=== PATIENT | female | born 1940 | race Caucasian/White ===

== ENCOUNTER 2019-05-07 16:31 | Emergency (ER) | payer MEDICARE ==
[~2019-05-07] VITALS: Ht 154.9 cm; Wt 55.8 kg
--- NOTE | 2019-05-07 17:46 | Diagnostic Imaging Report ---
EXAMINATION: PA and lateral views of the chest. COMPARISON: None CLINICAL HISTORY: Heart issues DISCUSSION: Lines/tubes: None. Lungs: Age-related interstitial change. No consolidation. Pleura: No pleural effusion or pneumothorax. Heart and mediastinum: The cardiomediastinal silhouette is normal. Bones and soft tissues: No acute bony abnormalities. IMPRESSION: No acute cardiopulmonary abnormalities. Signed by: Dr. Tera Mendoza M.D. on 05/07/2019 5:43 PM
[2019-05-07 18:17] VITALS: BP 129/62
== END 2019-05-07 18:31 | disposition home or self-care (01) ==
LOC: FSED 16:31
DX: R00.2 Palpitations (principal); I48.11 Longstanding persistent atrial fibrillation; I10 Essential (primary) hypertension
CPT/HCPCS: 71046; 80053; 82553; 84484; 85025; 93005; 99283

== ENCOUNTER 2024-04-28 21:08 | Emergency (ER) | payer MEDICARE ==
[~2024-04-28] VITALS: Ht 154.9 cm; Wt 55.8 kg
[2024-04-28 21:15] VITALS: PULSE 64; RESP 17; TEMP 98.8
[2024-04-28 23:36] VITALS: BP 160/61; O2SAT 98
== END 2024-04-28 23:14 | disposition home or self-care (01) ==
LOC: ER 21:12
DX: S01.81XA Laceration without foreign body of other part of head, initial encounter (principal); M25.561 Pain in right knee; W01.0XXA Fall on same level from slipping, tripping and stumbling without subsequent striking against object, initial encounter; Y93.01 Activity, walking, marching and hiking; Y92.89 Other specified places as the place of occurrence of the external cause; I10 Essential (primary) hypertension; I48.91 Unspecified atrial fibrillation; M19.09 Primary osteoarthritis, other specified site
CPT/HCPCS: 70450; 99283

== ENCOUNTER 2025-02-08 23:48 | Emergency (ER) | payer MEDICARE ==
[~2025-02-08] VITALS: Ht 154.9 cm; Wt 55.8 kg
[2025-02-09 00:20] VITALS: RESP 17; TEMP 98
[2025-02-09 02:01] VITALS: PULSE 59
[2025-02-09 02:13] VITALS: BP 178/69; O2SAT 99
== END 2025-02-09 02:11 | disposition home or self-care (01) ==
LOC: ER 23:51
DX: S02.2XXA Fracture of nasal bones, initial encounter for closed fracture (principal); J32.9 Chronic sinusitis, unspecified; I10 Essential (primary) hypertension; I48.11 Longstanding persistent atrial fibrillation; M19.90 Unspecified osteoarthritis, unspecified site; Z88.0 Allergy status to penicillin; Z88.5 Allergy status to narcotic agent; Z88.8 Allergy status to other drugs, medicaments and biological substances; Z88.7 Allergy status to serum and vaccine; W01.10XA Fall on same level from slipping, tripping and stumbling with subsequent striking against unspecified object, initial encounter; Y93.9 Activity, unspecified; Y92.9 Unspecified place or not applicable
CPT/HCPCS: 70450; 70486; 99283